=== PATIENT | female | born 1950 | race Caucasian/White ===

== ENCOUNTER → 2018-01-13 | Outpatient (CLI) | payer MEDICARE, OTHER ==
--- NOTE | 2018-01-14 09:19 | MM ---
Reason for exam: screening (asymptomatic). Last mammogram was performed 3 years and 2 months ago. History: Patient is postmenopausal. Physical Findings: A clinical breast exam by your physician is recommended on an annual basis and results should be correlated with mammographic findings. MG 3D Screening Mammo W/Cad Bilateral CC and MLO view(s) were taken. Prior study comparison: October 31, 2014, left breast MG work up mamm w CAD LT. October 29, 2014, bilateral MG screening mammo w CAD. The breast tissue is heterogeneously dense. This may lower the sensitivity of mammography. There are new oval circumscribed low density masses bilaterally. Right lower inner quadrant 7.8cm from nipple on CC view and left lower outer quadrant 5cm from nipple. There is a new 4mm faint group of calcifications in the outer left breast 7.7cm from nipple with no definite correlate on MLO view likely due to subtle motion. Inferior location is suspected. ML and magnification views will be performed. ASSESSMENT: Incomplete: need additional imaging evaluation, BI-RAD 0 RECOMMENDATION: Special view mammogram of both breasts. If lesion persists on supplemental views, image directed ultrasound is recommended. [facility] will attempt to contact patient to return for supplemental views and ultrasound if indicated.
== END | disposition home or self-care (01) ==
LOC: RADMAMWWP 14:24
PROVIDERS: ATTEND Internal Medicine
DX: Z12.31 Encounter for screening mammogram for malignant neoplasm of breast (principal)
CPT/HCPCS: 77063; 77067

== ENCOUNTER → 2018-02-09 | Outpatient (CLI) | payer MEDICARE, OTHER ==
--- NOTE | 2018-02-09 08:19 | MM ---
Reason for exam: additional evaluation requested from abnormal screening. Last mammogram was performed 1 month ago. History: Patient is postmenopausal. Physical Findings: Nurse did not find any significant physical abnormalities on exam. MG Work Up Mamm w CAD BILAT Bilateral LM, spot compression CC, and spot compression MLO view(s) were taken. LM with magnification and CC with magnification view(s) were taken of the left breast. Prior study comparison: January 13, 2018, bilateral MG 3d screening mammo w/cad. October 31, 2014, left breast MG work up mamm w CAD LT. There are scattered fibroglandular densities. Questioned central lower inner quadrant nodularity measures approximately 4mm and is circumscribed. It has the appearance of a blood vessel on spot CC and disperses on spot MLO, 6 month follow up recommended. On the left 3mm circumscribed nodularity lower outer quadrant, probably benign, 6 month follow up recommended. On the left vague faint calcifications laterally middle posterior depth. 3D images suggest an inferior positioning but no corresponding inferior calcifications seen on the MLO or lateral view. These results were verbally communicated with the patient and result sheet given to the patient on 02/09/18. ASSESSMENT: Probably benign, BI-RAD 3 RECOMMENDATION: Follow-up diagnostic mammogram of both breasts in 6 months.
== END | disposition home or self-care (01) ==
LOC: RADMAMWWP 06:52
PROVIDERS: ATTEND Internal Medicine
DX: R92.8 Other abnormal and inconclusive findings on diagnostic imaging of breast (principal)
CPT/HCPCS: 77066

== ENCOUNTER → 2021-08-29 | Outpatient (CLI) | payer MEDICARE, OTHER ==
--- NOTE | 2021-08-29 10:44 | CA ---
Transthoracic Echo Report Name: Iwona Anthony Age: 70 Gender: F : 1950 Exam Date: 08/29/2021 08:50 Exam Location: [place] Echo Ht (in): 68 Wt (lb): 204 Ordering Physician: Leia Temple MD Attending/Referring Phys: Pallet Sorter Elizabeth Sawyer RDCS Procedure CPT: Indications: R07.9 CHEST PAIN Cardiac Hx: Technical Quality: Fair Contrast 1: Total Dose (mL): Contrast 2: Total Dose (mL): MEASUREMENTS (Male / Female) Normal Values 2D ECHO LV Diastolic Diameter PLAX 4.3 cm 4.2 - 5.9 / 3.9 - 5.3 cm LV Systolic Diameter PLAX 2.4 cm IVS Diastolic Thickness 1.4 cm 0.6 - 1.0 / 0.6 - 0.9 cm LVPW Diastolic Thickness 1.6 cm 0.6 - 1.0 / 0.6 - 0.9 cm LV Relative Wall Thickness 0.7 RV Internal Dim ED PLAX 2.3 cm LA Volume 41.9 cm??? 18 - 58 / 22 - 52 cm??? M-MODE Aortic Root Diameter MM 2.7 cm LA Systolic Diameter MM 3.9 cm LA Ao Ratio MM 1.4 AV Cusp Separation MM 1.7 cm DOPPLER AV Peak Velocity 113.7 cm/s AV Peak Gradient 5.2 mmHg LVOT Peak Velocity 91.7 cm/s LVOT Peak Gradient 3.4 mmHg MV Area PHT 3.1 cm??? Mitral E Point Velocity 84.4 cm/s Mitral A Point Velocity 101.2 cm/s Mitral E to A Ratio 0.8 MV Deceleration Time 248.6 ms TR Peak Velocity 181.5 cm/s TR Peak Gradient 13.2 mmHg Right Ventricular Systolic Press 18.2 mmHg FINDINGS Left Ventricle Moderately increased left ventricular wall thickness. Normal left ventricular systolic function with no obvious regional wall motion abnormalities. Left ventricular ejection fraction is estimated at 55-60 %. Normal left ventricular diastolic filling pattern. Right Ventricle Normal right ventricular size and function. Right ventricular systolic pressure within normal limits. Right Atrium Right atrium not well visualized. Left Atrium Normal left atrial size. No evidence for an atrial septal defect. Mitral Valve Structurally normal mitral valve. Mild mitral regurgitation. Aortic Valve Trileaflet aortic valve. No aortic valve stenosis or regurgitation. Tricuspid Valve Structurally normal tricuspid valve. Mild tricuspid regurgitation. Pulmonic Valve Structurally normal pulmonic valve. Trace pulmonic regurgitation. Pericardium No pericardial effusion. Aorta Normal size aortic root and proximal ascending aorta. CONCLUSIONS Normal left ventricular ejection fraction 55-60% Moderate LVH Normal RVSP Mild mitral regurgitation Mild tricuspid regurgitation Previewed by: Dr. Marty Machado DO (Electronically Signed) Final Date: 29 August 2021 10:43
--- NOTE | 2021-08-29 11:01 | CA ---
Exercise Stress Test Report Name: Iwona Anthony Exam Date: 08/29/2021 09:27 Exam Location: [place] Stress Ht (in): 68 Wt (lb): 204 BSA: 2.06 Ordering Phys: Leia Temple MD Referring Phys: LEIA TEMPLE,, Technologist: Jose Mckeon Age: 70 Gender: F : 1950 Procedure CPT: Indications: R07.9 CHEST PAIN ICD-10 Codes: Patient History: Chest Pain Medications: Omeprazole, Atorvastatin, Timalol, Lantraprost Meds past 24 hrs: Pretest Chest Pain: STRESS TEST Konrad Protocol Exercise Duration (min:sec): 05:[address] Depressions (mm): Angina Score: Muñoz Score: Resting HR (bpm): 51 Peak HR (bpm): 128 Resting BP (mmHg): 141 / 77 Peak BP (mmHg): 185 / 89 MPHR: 150 Target HR: 128 % MPHR: 85 METS: 7.1 Total Dose: Peak Dose: Atropine: Double Product: 93270 BP Response: Stress Termination: Fatigue Stress Symptoms: Dyspnea Stress Summary: ECG ANALYSIS Resting ECG: Stress ECG: CONCLUSIONS Patient underwent exercise stress EKG with a Konrad protocol treadmill stress test. Patient exercised into Stage 2 for a total of 5 minutes 38 seconds reaching a total of 7.1 METS. Patient's maximum heart rate was 128 which represented 85 % age- predicted maximum heart rate. Stress EKG findings: At baseline patient's EKG showed normal sinus rhythm, normal axis, no significant ST or T wave abnormalities. At peak exercise, EKG showed no significant change from baseline. Conclusions: 1. Normal EKG response to exercise without evidence of inducible ischemia. 2. Fair exercise capacity. Dr. Marty Machado DO (Electronically Signed) Final Date: 29 August 2021 11:01
== END | disposition home or self-care (01) ==
LOC: RADECHMAIN 08:21
PROVIDERS: ATTEND Internal Medicine
DX: I08.1 Rheumatic disorders of both mitral and tricuspid valves (principal)
CPT/HCPCS: 93017; 93306

== ENCOUNTER → 2022-07-28 | Outpatient (CLI) | payer MEDICARE, OTHER ==
--- NOTE | 2022-07-28 11:24 | XR ---
EXAM TYPE: LUMBAR SPINE X RAY SERIES COMPARISON: 11/07/2014 HISTORY: Pain TECHNIQUE: 4 views are submitted. FINDINGS: Alignment is anatomic. The pedicles are intact. The transverse processes are intact. There is post surgical changes L5-S1. Diffuse osteopenia with scoliosis. SI joints remain symmetric with mild chron ic arthropathy. Vascular calcifications noted. There is no degenerative disc disease at levels T10-L4 with mild to moderate multilevel degenerative disc disease. Question of a small mild superior endplate compression fracture L2. IMPRESSION: 1. Postsurgical changes are stable. There is a question of a mild superior endplate compression fract ure L2 of indeterminate age. Recommend follow-up CT scan. A [place] level critical message alert has been initiated for Leia Temple MD via the [facility] Critical Results System on 07/28/2022 11:22 AM. This message alert has been sent to Leia Temple MD via the preferences provided by the clinician for the receipt of Radiology Critical Findings. [facility] e ID [id number].
--- NOTE | 2022-07-28 11:29 | XR ---
EXAMINATION TYPE: XR thoracic spine complete DATE OF EXAM: 07/28/2022 COMPARISON: NONE HISTORY: Pain TECHNIQUE: 3 views submitted FINDINGS: Alignment is anatomic. There is no compression deformities. Scoliosis of the spine with multilevel s evere degenerative disc disease. Atherosclerotic change aorta. Degenerative change cervical change. IMPRESSION: 1. Multilevel moderate to severe degenerative disc disease with scoliosis.
== END | disposition home or self-care (01) ==
LOC: RADXRYALE 10:46
PROVIDERS: ATTEND Internal Medicine
DX: M51.34 Other intervertebral disc degeneration, thoracic region (principal); S32.020A Wedge compression fracture of second lumbar vertebra, initial encounter for closed fracture; X58.XXXA Exposure to other specified factors, initial encounter; M41.34 Thoracogenic scoliosis, thoracic region
CPT/HCPCS: 72072; 72110

== ENCOUNTER → 2023-11-03 | Outpatient (CLI) | payer MEDICARE, OTHER ==
--- NOTE | 2023-11-03 10:34 | XR ---
EXAMINATION TYPE: XR chest 2V DATE OF EXAM: 11/03/2023 COMPARISON: 10/29/2014 TECHNIQUE: PA and lateral views submitted. HISTORY: Shortness of breath FINDINGS: The lungs are clear and there is no pneumothorax, pleural effusion, or focal pneumonia. Size enlarge d and no overt failure. Osseous structures demonstrate hypertrophic and degenerative changes of the s pine. Atherosclerotic change aorta. Generalized demineralization. IMPRESSION: 1. No acute process. [facility], , 11/03/2023 10:32 AM
== END | disposition home or self-care (01) ==
LOC: RADXRYALE 10:12
PROVIDERS: ATTEND Internal Medicine
DX: R06.02 Shortness of breath (principal)
CPT/HCPCS: 71046

== ENCOUNTER → 2023-11-09 | Outpatient (CLI) | payer MEDICARE, OTHER ==
--- NOTE | 2023-11-09 17:03 | CA ---
Transthoracic Echo Report Name: Iwona Anthony Age: 73 Gender: F : 1950 Exam Date: 11/09/2023 14:47 Exam Location: [place] [facility] Ht (in): 68 Wt (lb): 224 Ordering Physician: Leia Temple MD Attending/Referring Phys: Compression Molding Machine Setter Maria Luz Pereira RDCS Procedure CPT: Indications: R06.02 SHORTNESS OF BREATH Cardiac Hx: Technical Quality: Fair Contrast 1: Total Dose (mL): Contrast 2: Total Dose (mL): MEASUREMENTS (Male / Female) Normal Values 2D ECHO LV Diastolic Diameter PLAX 4.7 cm 4.2 - 5.9 / 3.9 - 5.3 cm LV Systolic Diameter PLAX 3.3 cm IVS Diastolic Thickness 1.0 cm 0.6 - 1.0 / 0.6 - 0.9 cm LVPW Diastolic Thickness 1.1 cm 0.6 - 1.0 / 0.6 - 0.9 cm LV Relative Wall Thickness 0.5 RV Internal Dim ED PLAX 2.9 cm LA Systolic Diameter LX 3.9 cm 3.0 - 4.0 / 2.7 - 3.8 cm LV Diastolic Volume MOD 4C 89.2 cm??? LV Systolic Volume MOD 4C 44.6 cm??? LV Ejection Fraction MOD 4C 50.1 % LV Cardiac Index MOD 4C 1213.9 cm???/min???m??? LV Diastolic Length 4C 7.5 cm LV Systolic Length 4C 6.6 cm LV Diastolic Volume MOD 2C 90.8 cm??? LV Systolic Volume MOD 2C 43.3 cm??? LV Ejection Fraction MOD 2C 52.3 % LV Cardiac Index MOD 2C 1291.2 cm???/min???m??? LV Diastolic Length 2C 8.1 cm LV Systolic Length 2C 6.9 cm M-MODE Aortic Root Diameter MM 2.8 cm AV Cusp Separation MM 2.0 cm DOPPLER AV Peak Velocity 134.6 cm/s AV Peak Gradient 7.2 mmHg Mitral E Point Velocity 98.4 cm/s Mitral A Point Velocity 114.5 cm/s Mitral E to A Ratio 0.9 MV Deceleration Time 195.0 ms MV E' Velocity 5.8 cm/s Mitral E to MV E' Ratio 17.1 TR Peak Velocity 286.0 cm/s TR Peak Gradient 32.7 mmHg Right Ventricular Systolic Press 45.0 mmHg FINDINGS Left Ventricle Left ventricular ejection fraction is estimated at 55-60 %. Left ventricular cavity size normal. Left ventricular wall thickness normal. Normal left ventricular wall motion. Right Ventricle Normal right ventricular size and function. Mild to moderate pulmonary hypertension. Right Atrium Normal right atrial size. No right atrial thrombus or mass seen. Left Atrium Normal left atrial size. No left atrial thrombus or mass present. Mitral Valve Structurally normal mitral valve. No mitral stenosis,or prolapse. Trace mitral regurgitation. Aortic Valve Trileaflet aortic valve. No aortic valve stenosis or regurgitation. Tricuspid Valve Structurally normal tricuspid valve. Mild tricuspid regurgitation. Pulmonic Valve Structurally normal pulmonic valve. Mild pulmonic regurgitation. Pericardium No pericardial or pleural effusion. Aorta Normal size aortic root and proximal ascending aorta. CONCLUSIONS Normal LV systolic function Mild to moderate pulmonary hypertension Mild tricuspid regurgitation Previewed by: Dr. Jose Cruz Vuong MD (Electronically Signed) Final Date: 09 November 2023 17:02
== END | disposition home or self-care (01) ==
LOC: RADECHMAIN 14:36
PROVIDERS: ATTEND Internal Medicine
DX: R06.02 Shortness of breath
CPT/HCPCS: 93306